=== PATIENT | male | born 2000 | race Caucasian/White ===

== ENCOUNTER 2019-04-13 01:22 | Emergency (ER) | payer MEDICAID ==
[~2019-04-13] VITALS: Ht 180.3 cm; Wt 108.9 kg
[2019-04-13 01:30] VITALS: BP 134/72
--- NOTE | 2019-04-13 01:31 | NUR ---
PT AMBULATED TO BED 08.
--- NOTE | 2019-04-13 01:47 | NUR ---
18 Y/O MALE PRESENTS TO ED, C/O FEVER. PT STATES HAVING FEVER SINCE YESTERDAY MORNING, UNABLE TO PROVIDE A TEMPERATURE BEFORE COMING TO ED; PT AFEBRILE DURING ASSESSMENT, 99.1 ORAL. PT C/O HEADACHE AND THROAT PAIN 11/26. DENIES ANY CHEST PAIN. NO SOB/DIFFICULTY BREATHING NOTED. PT DENIES N/V/D. PT VSS. ERMD AWARE. WILL CONTINUE TO MONITOR.
[2019-04-13] MEDS ORDERED: DEXAMETHASONE 4 MG/ML VIAL PO ONE (01:50)
[2019-04-13] MEDS ORDERED: ACETAMINOPHEN 325 MG TAB PO ONE (01:50)
[2019-04-13 02:15] VITALS: BP 134/72
--- NOTE | 2019-04-13 02:15 | NUR ---
PT DISCHARGED WITH PAPERWORK. EDUCATED PT REGARDING MEDICATIONS AND D/C DIAGNOSIS. PT VERBALIZED UNDERSTANDING. TOLD PT TO FOLLOW UP WITH PCP AND WHEN TO RETURN TO ED. PT STABLE. ALL QUESTIONS ANSWERED.
== END 2019-04-13 02:15 | disposition home or self-care (01) ==
LOC: MED 01:22
DX: B34.9 Viral infection, unspecified (principal)
CPT/HCPCS: 99283; J1100

== ENCOUNTER 2019-05-14 19:45 | Emergency (ER) | payer MEDICAID ==
[~2019-05-14] VITALS: Ht 180.3 cm; Wt 108.9 kg
[2019-05-14 20:02] VITALS: BP 144/79
--- NOTE | 2019-05-14 20:04 | NUR ---
RETURNED TO [facility] AWAITNG ED BED.
--- NOTE | 2019-05-14 21:13 | NUR ---
PT AMBULATED TO ER BED 11
--- NOTE | 2019-05-14 21:30 | NUR ---
18 Y/O MALE PRESENTS TO ED, C/O RECTAL PAIN X1.5 WEEKS. PT STATES PAIN IS 8/10. STATES HAVING RASH AROUND RECTAL REGION. PT DENIES ANY BLEEDING IN STOOL. NO ABNORMAL DRAINAGE OR BLEEDING AROUND RECTAL REGION. NO MEDICATIONS TAKEN PRIOR COMING TO ED. PT VSS. ERMD AWARE. WILL CONTINUE TO MONITOR.
[2019-05-14 21:57] VITALS: BP 135/77
--- NOTE | 2019-05-14 21:57 | NUR ---
PT DISCHARGED WITH PAPERWORK. EDUCATED PT REGARDING MEDICATION AND D/C INSTRUCTIONS. VERBALIZED UNDERSTANDING OF TEACHING. TOLD PT TO FOLLOW UP WITH PCP AND WHEN TO RETURN TO ED. PT STABLE CONDITION. ALL QUESTIONS ANSWERED.
== END 2019-05-14 21:57 | disposition home or self-care (01) ==
LOC: MED 19:45
DX: K64.4 Residual hemorrhoidal skin tags (principal)
CPT/HCPCS: 99282